=== PATIENT | male | born 1965 | race Caucasian/White ===

== ENCOUNTER 2019-11-29 07:50 | Observation (INO) | payer OTHER ==
[~2019-11-29] VITALS: Ht 177.8 cm; Wt 65.8 kg
[2019-11-29 10:32] LABS: BASOPHILS ABSOLUTE AUTO 0.04 K/mm3 (0.00-0.23); BASOPHILS PERCENT AUTO 0 % (0-2); EOSINOPHILS ABSOLUTE AUTO 0.02 K/mm3 (0.00-0.68); EOSINOPHILS PERCENT AUTO 0 % (0-6); Hematocrit 45.9 % (37.0-53.0); Hemoglobin 15.9 g/dL (13.5-17.5); IMMATURE GRAN ABSOLUTE AUTO 0.04 K/mm3 (0.00-0.10); IMMATURE GRAN PERCENT AUTO 0 % (0-1); LYMPHOCYTES ABSOLUTE AUTO 1.89 K/mm3 (0.84-5.20); LYMPHOCYTES PERCENT AUTO 18 % (21-46); MONOCYTES ABSOLUTE AUTO 0.78 K/mm3 (0.16-1.47); MONOCYTES PERCENT AUTO 7 % (4-13); Mean Corpuscular HGB 32.2 pg (26.0-34.0); Mean Corpuscular HGB Conc 34.6 g/dL (31.5-36.5); Mean Corpuscular Volume 93 fL (80-100); Mean Platelet Volume 8.3 fL (9.1-12.4); NEUTROPHILS ABSOLUTE AUTO 8.06 K/mm3 (1.96-9.15); NEUTROPHILS PERCENT AUTO 74 % (41-73); Platelet Count 334 K/mm3 (150-400); RDW Standard Deviation 44.3 fL (35.1-46.3); Red Blood Cell Count 4.94 M/mm3 (4.30-5.90); White Blood Cell Count 10.83 K/mm3 (4.00-11.30)
[2019-11-29 10:51] LABS: Alanine Aminotransfer (ALT/SGP 27 U/L (12-78); Albumin, Blood 4.6 g/dL (3.4-5.0); Albumin/Globulin Ratio 1.3 (0.8-1.8); Alk Phos 79 U/L (50-136); Anion Gap 8 mmol/L (6-16); Aspartate Aminotrans (AST/SGOT 41 U/L (12-37); Bilirubin, Total 0.5 mg/dL (0.1-1.0); Blood Urea Nitrogen 5 mg/dL (8-24); Bun/Creatinine Ratio 7.5 (12.0-20.0); CO2, Blood 27 mmol/L (21-32); Calcium, Blood 9.2 mg/dL (8.5-10.1); Chloride, Blood 96 mmol/L (98-108); Creatinine, Blood 0.67 mg/dL (0.60-1.20); Globulin, Blood 3.6 g/dL (2.2-4.0); Glomerular Filtration Rate >60 (60-); Glucose, Blood 95 mg/dL (70-99); Potassium, Blood 4.2 mmol/L (3.5-5.5); Sodium, Blood 131 mmol/L (136-145); Total Protein, Blood 8.2 g/dL (6.4-8.2)
[2019-11-29] MEDS ORDERED: Norco 5-325 Ta1 EACH PO (16:02)
--- NOTE | 2019-11-29 18:04 | NUR ---
DENIES ANY NEED FOR PAIN MEDS THIS TIME, VOIDING WITHOUT DIFFICULTY, TOLERATING SIPS OF CLEAR LIQUID WELL, PT TRIED FULL LIQUIDS BUT STATES "IT DIDN'T AGREE WITH ME," DENIES ANY NAUSEA OR INCREASED PAIN, DC ORDERS NOTED BUT PT STATES HE DOESN'T HAVE A RIDE HOME AND HE WILL NEED TO DRIVE HIS TRUCK HOME, PLAN DC TOMORROW.
--- NOTE | 2019-11-30 06:41 | NUR ---
POD 1 S/P INGUINAL HERNIA REPAIR. PT VSS T/O NIGHT. DRESSINGS CDI, SITES SOFT TO PALP. SCROTAL SLING IN PLACE. PT REP PAIN MINIMAL, MGD W/1 NORCO W/REP RELIEF. PT VERONICA REG PO, NO N/V, REP +FLATUS. PT UP INDEP IN ROOM, IS VOIDING URINE W/O DIFFICULTY. PLAN TO D/C HOME THIS AM.
--- NOTE | 2019-11-30 08:29 | NUR ---
DISCHARGE PT DISCHARGED HOME FROM UNIT AT APROX 0820. PT GIVEN WRITTEN AND VERBAL DISCHARGE INSTRUCTIONS AND VERBALIZED UNDERSTANDING OF THESE INSTRUCTIONS. PT REMOVED HIS OWN IV THIS AM STATING "IT WAS JUST HANGING THERE" EXAMINED IV CATHETER ON BEDSIDE TABLE AND IT WAS FULLY INTACT AND WNL. WRITTEN RX FOR PAIN MEDICATION GIVEN TO PT, COPY IN CHART. PT DECLINED WHEELCHAIR TO CAR, THIS RN WALKED WITH PT TO EXIT OF HOSPITAL.
--- NOTE | 2019-11-30 12:01 | NUR ---
11/30/19 1201 Brianne Cline VERIFICATIONS: EDIT CHART.
== END 2019-11-30 08:31 | disposition home or self-care (01) ==
LOC: ER 07:50 → SURS 07:51 → EDBEDREQ 10:38 → SURS 14:06
PROVIDERS: Physician Assistant; ADMIT Surgery
PROC: 0YU64JZ Supplement Left Inguinal Region with Synthetic Substitute, Percutaneous Endoscopic Approach (ICD-10-PCS; principal; 2019-11-29 11:00)
DX: K40.30 Unilateral inguinal hernia, with obstruction, without gangrene, not specified as recurrent (principal); F17.210 Nicotine dependence, cigarettes, uncomplicated
CPT/HCPCS: 36415; 76870; 80053; 85025; 86850; 86900; 86901; A9270-GY; C1781; G0378; J0690; J1100; J1170; J1885; J2250; J2405; J2704; J3010; J3360; J7120